=== PATIENT | male | born 1960 | race Caucasian/White ===

== ENCOUNTER 2019-07-16 17:42 | Emergency (ER) | payer OTHER ==
[~2019-07-16] VITALS: Ht 180.3 cm; Wt 99.8 kg
[~2019-07-16 17:42] MED LIST: HYDR1TAB PO; RT-COMBINH; SULF1TAB38 PO; TIOT18CA; TRAZ50TA67
[2019-07-16] MEDS ORDERED: NS IV 1000 ML 1,000 ML ONE (17:56)
[2019-07-16] MEDS ORDERED: ASPIRIN 81 MG CHEW (CHILDREN'S ASA) PO ONE (18:00)
[2019-07-16 18:04] LABS: BASOPHILS % (AUTO) 0 % (0-10); EOSINOPHILS # (AUTO) 0.3 10^3/uL (0.0-0.3); EOSINOPHILS % (AUTO) 3 % (0-10); HEMATOCRIT 44 % (40-54); HEMOGLOBIN 14.9 G/DL (13.3-17.7); LYMPHOCYTES # (AUTO) 2.4 X 10^3 (1.0-4.0); LYMPHOCYTES % (AUTO) 24 % (12-44); MEAN CORPUSCULAR HEMOGLOBIN 29 PG (25-34); MEAN CORPUSCULAR HGB CONC 34 G/DL (32-36); MEAN CORPUSCULAR VOLUME 86 FL (80-99); MEAN PLATELET VOLUME 9.5 FL (7.4-10.4); MONOCYTES # (AUTO) 1.2 X 10^3 (0.0-1.0); MONOCYTES % (AUTO) 12 % (0-12); NEUTROPHILS % (AUTO) 61 % (42-75); PLATELET COUNT 294 10^3/uL (130-400); WHITE BLOOD COUNT 9.9 10^3/uL (4.3-11.0)
[2019-07-16] MEDS ORDERED: LACTATED RINGERS 1,000 ML IV ONE ×2 (18:08→18:14)
[2019-07-16] MEDS ORDERED: NS IV 1000 ML 1,000 ML IV ONE ×2 (18:14→19:31)
[2019-07-16 18:15] LABS: PROTHROMBIN TIME PATIENT 13.7 SEC (12.2-14.7)
[2019-07-16 18:22] LABS: ALANINE AMINOTRANSFERASE 23 U/L (0-55); ALBUMIN 4.1 GM/DL (3.2-4.5); ALKALINE PHOSPHATASE 89 U/L (40-136); BILIRUBIN,TOTAL 0.3 MG/DL (0.1-1.0); BUN/CREATININE RATIO 12; CALCIUM 9.4 MG/DL (8.5-10.1); CARBON DIOXIDE 23 MMOL/L (21-32); CHLORIDE 103 MMOL/L (98-107); CREATININE SERUM 1.95 MG/DL (0.60-1.30); GFR ESTIMATED 36; GLUCOSE 115 MG/DL (70-105); MAGNESIUM 1.4 MG/DL (1.6-2.4); POTASSIUM 3.8 MMOL/L (3.6-5.0); SODIUM 140 MMOL/L (135-145); TOTAL PROTEIN 7.1 GM/DL (6.4-8.2)
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
--- NOTE | 2019-07-16 18:34 | Diagnostic Imaging Report ---
INDICATION: Chest pain, tachycardia. EXAMINATION: Upright portable chest was obtained. FINDINGS: Normal heart size and vascularity. The lungs are clear. There is no effusion or pneumothorax. There is no bony abnormality. IMPRESSION: Normal chest. Dictated by: Dictated on workstation # [id number]
[2019-07-16] MEDS ORDERED: MAGNESIUM 1 GM/100 ML IVPB 100 ML IV ONE (18:40)
[2019-07-16] MEDS: MAGNESIUM 1 GM/100 ML IVPB 100 ML IV SCH ×2 (18:54→20:05)
--- NOTE | 2019-07-16 19:05 | NUR ---
Dr Arauz in pt room to discuss plans of admission and possible central line at this time.
--- NOTE | 2019-07-16 19:22 | NUR ---
[facility] dispatch notified for transfer.
--- NOTE | 2019-07-16 19:38 | Diagnostic Imaging Report ---
INDICATION: Central line placement. EXAMINATION: Portable chest was obtained. FINDINGS: Normal heart size and vascularity. The lungs are clear. There is no effusion or pneumothorax. There has been placement of a right-sided IJ line. Tip is in the SVC at the level of the azygos vein. IMPRESSION: Central line catheter tip is in the mid SVC. Dictated by: Dictated on workstation # [id number]
[2019-07-16 19:49] LABS: BILIRUBIN,URINE NEGATIVE (NEGATIVE); CLARITY,URINE CLEAR; COLOR,URINE YELLOW; GLUCOSE, URINE (UA) NEGATIVE (NEGATIVE); KETONES,URINE NEGATIVE (NEGATIVE); LEUKOCYTE ESTERASE ,URINE NEGATIVE (NEGATIVE); NITRITE,URINE NEGATIVE (NEGATIVE); PH,URINE 6.5 (5-9); PROTEIN,URINE 1+ (NEGATIVE); UROBILINOGEN,URINE NORMAL (NORMAL)
[2019-07-16 20:03] LABS: AMPHETAMINE SCREEN, URINE NEGATIVE (NEGATIVE); BARBITURATE SCREEN URINE NEGATIVE (NEGATIVE); BENZODIAZEPINES SCREEN URINE NEGATIVE (NEGATIVE); CANNABINOID SCREEN, URINE NEGATIVE (NEGATIVE); COCAINE SCREEN URINE NEGATIVE (NEGATIVE); METHADONE STAT NEGATIVE (NEGATIVE); METHAMPHETAMINE SCREEN URINE S NEGATIVE (NEGATIVE); OPIATE SCREEN URINE NEGATIVE (NEGATIVE); OXYCODONE STAT NEGATIVE (NEGATIVE); PROPOXYPHENE STAT NEGATIVE (NEGATIVE); TRICYCLIC ANTIDEPRESSANTS SCRE NEGATIVE (NEGATIVE)
[2019-07-16 20:11] LABS: AMORPHOUS SEDIMENT,UR RARE AMOR URATES /LPF; BACTERIA,URINE NEGATIVE /HPF; SQUAMOUS EPITHELIAL CELL,UR 0-2 /HPF
[2019-07-16 20:15] VITALS: BP 100/51
== END 2019-07-16 20:15 | disposition short-term general hospital (02) ==
LOC: EDUNIT# 17:42 → ER 17:43
DX: R07.9 Chest pain, unspecified (principal); I95.9 Hypotension, unspecified; N28.9 Disorder of kidney and ureter, unspecified; E83.42 Hypomagnesemia; I25.2 Old myocardial infarction; J44.9 Chronic obstructive pulmonary disease, unspecified; I10 Essential (primary) hypertension; E78.00 Pure hypercholesterolemia, unspecified; Z95.5 Presence of coronary angioplasty implant and graft; Z91.14 Patient's other noncompliance with medication regimen; Z99.81 Dependence on supplemental oxygen; Z87.891 Personal history of nicotine dependence; Z90.49 Acquired absence of other specified parts of digestive tract
CPT/HCPCS: 36415; 71045; 80053; 80306; 80320; 81000; 83735; 83874; 83880; 84484; 85025; 85610; 85730; 93005; 93041